=== PATIENT | male | born 1960 | race Caucasian/White ===

== ENCOUNTER 2019-02-15 09:44 | Emergency (ER) | payer BC ==
--- NOTE | 2019-02-15 09:54 | EDM.PDOC ---
ED HPI GENERAL MEDICAL PROBLEM - General Chief Complaint: Chest Pain Stated Complaint: CHEST PAINS Time Seen by Provider: 02/15/19 09:53 Source of Information: Reports: Patient, Old Records, RN, RN Notes Reviewed History Limitations: Reports: No Limitations - History of Present Illness INITIAL COMMENTS - FREE TEXT/NARRATIVE: Pt presents with c/o chest pain on and off x1 week. Pt states the pain occurs with certain movements and activities, and seems to be positional. The pain completely goes away if he lays on his back. He denies radiating pain, nausea, cough, shortness of breath, acid reflux, palpitations, or edema. Pt states he had similar pain about six months ago and underwent a chest pain rule out at another hospital, and nothing was found to be wrong with his heart. He did not f /u for a cardiac stress test. Duration: Constant, Improving Location: Reports: Chest Quality: Reports: Ache Severity: Moderate Improves with: Reports: Immobilization, Rest Worsens with: Reports: Movement (of the chest) Associated Symptoms: Reports: No Other Symptoms Left Chest Pain Score (Numeric/FACES): 1 - Related Data Allergies Allergy/AdvReac Type Severity Reaction Status Date / Time No Known Allergies Allergy Verified 02/15/19 09:54 Home Meds: Home Meds Insulin Glarg,Human.Rec.Analog [Lantus] 45 units SUBCUT DAILY 02/15/19 [History] Liraglutide [Victoza] 18 units SUBCUT DAILY 02/15/19 [History] Lisinopril 10 mg PO DAILY 02/15/19 [History] Omeprazole 20 mg PO DAILY 02/15/19 [History] metFORMIN [Glucophage XR] 500 mg PO BID 02/15/19 [History] Past Medical History Cardiovascular History: Reports: Hypertension Gastrointestinal History: Reports: Diverticulosis, GERD Endocrine/Metabolic History: Reports: Diabetes, Type II, Obesity/BMI 30+ - Past Surgical History GI Surgical History: Reports: Bariatric Procedure (gastric bypass) Social & Family History - Family History Family Medical History: Noncontributory - Tobacco Use Smoking Status *Q: Never Smoker - Caffeine Use Caffeine Use: Reports: Coffee, Soda - Recreational Drug Use Recreational Drug Use: No - Living Situation & Occupation Living situation: Reports: with Family ED ROS GENERAL - Review of Systems Review Of Systems: ROS reveals no pertinent complaints other than HPI. ED EXAM, GENERAL - Physical Exam Exam: See Below Exam Limited By: No Limitations General Appearance: Alert, WD/WN, No Apparent Distress, Obese Eye Exam: Bilateral Eye: Normal Inspection Nose: Normal Inspection Throat/Mouth: Normal Inspection, Normal Lips, Normal Voice, No Airway Compromise Head: Atraumatic, Normocephalic Neck: Normal Inspection, Supple, Non-Tender, Full Range of Motion Respiratory/Chest: No Respiratory Distress, Lungs Clear, Normal Breath Sounds, No Accessory Muscle Use, Chest Non-Tender Cardiovascular: Normal Peripheral Pulses, Regular Rate, Rhythm, No Edema, No Gallop, No JVD, No Murmur, No Rub GI/Abdominal: Normal Bowel Sounds, Soft, Non-Tender, No Organomegaly, No Distention, No Abnormal Bruit, No Mass Back Exam: Normal Inspection Extremities: Normal Inspection, Normal Range of Motion, Non-Tender, Normal Capillary Refill, No Pedal Edema Neurological: Alert, Oriented, CN II-XII Intact, Normal Cognition, Normal Gait, No Motor/Sensory Deficits Psychiatric: Normal Affect, Normal Mood Skin Exam: Warm, Dry, Intact, Normal Color, No Rash EKG INTERPRETATION EKG Date: 02/15/19 Time: 09:52 Rhythm: Other (Sinus michelle) Rate (Beats/Min): 58 [place]: Normal P-Wave: Present QRS: Normal ST-T: Normal QT: Normal Comparison: NA - No Prior EKG Course - Vital Signs Last Recorded V/S: Last Vital Signs Temp 36.7 C 02/15/19 09:47 Pulse 59 L 02/15/19 09:47 Resp 17 02/15/19 09:47 BP 143/54 H 02/15/19 09:47 Pulse Ox 97 02/15/19 09:47 - Orders/Labs/Meds Orders: Active Orders 24 hr Category Date Time Status EKG 12 Lead [EKG Documentation Completion] [RC] STAT Care 02/15/19 09:54 Active Peripheral IV Care [RC] . DIRECTED Care 02/15/19 10:03 Active Sodium Chloride 0.9% [Saline Flush] Med 02/15/19 10:02 Active 10 ml FLUSH ASDIRECTED PRN Peripheral IV Insertion Adult [OM.PC] Stat Oth 02/15/19 10:02 Ordered Medication Orders Sodium Chloride (Saline Flush) 10 ml FLUSH ASDIRECTED PRN PRN Reason: Keep Vein Open Last Admin: 02/15/19 10:09 Dose: 10 ml Labs: Laboratory Tests 02/15/19 02/15/19 Range/Units 10:06 10:06 WBC 11.2 H (5.0-10.0) 10^3/uL RBC 5.62 (4.6-6.2) 10^6/uL Hgb 16.5 (14.0-18.0) g/dL Hct 49.4 (40.0-54.0) % MCV 87.9 (80-100) fL MCH 29.4 (27.0-34.0) pg MCHC 33.4 (33.0-35.0) g/dL Plt Count 277 (150-450) 10^3/uL Neut % (Auto) 62.8 (42.2-75.2) % Lymph % (Auto) 23.7 (20.5-50.1) % Ocean % (Auto) 8.0 (2-8) % Eos % (Auto) 4.9 H (1.0-3.0) % Baso % (Auto) 0.6 (0.0-1.0) % Sodium 137 (135-145) mmol/L Potassium 4.7 (3.6-5.0) mmol/L Chloride 101 (101-111) mmol/L Carbon Dioxide 25.0 (21.0-31.0) mmol/L Anion Gap 15.7 BUN 15 (7-18) mg/dL Creatinine 0.8 (0.6-1.3) mg/dL Est Cr Clr Drug Dosing 109.81 mL/min Estimated GFR (MDRD) > 60 BUN/Creatinine Ratio 18.75 Glucose 209 H (74-105) mg/dL Calcium 9.5 (8.4-10.2) mg/dl Total Bilirubin 0.8 (0.2-1.0) mg/dL AST 19 (10-42) IU/L ALT 25 (10-60) IU/L Alkaline Phosphatase 77 (42-121) IU/L Troponin I < 0.02 (0.00-0.02) ng/ml Total Protein 7.4 (6.7-8.2) g/dl Albumin 4.2 (3.2-5.5) g/dl Globulin 3.2 Albumin/Globulin Ratio 1.31 Lipase 30 (22-51) U/L Meds: Medications Generic Name Dose Route Start Last Admin Trade Name Freq PRN Reason Stop Dose Admin Sodium Chloride 10 ml 02/15/19 10:02 02/15/19 10:09 Saline Flush FLUSH 10 ml ASDIRECTED PRN Administration Keep Vein Open - Radiology Interpretation Free Text/Narrative:: [facility] [place] [facility] Final Radiology Report Call: [phone] assistance Online chat: [email or web address] Name: RICH DALE Age: 58Years M Date: 02/15/2019 SSN: -- : [id number] Study: XR CHEST 1 VIEW FRONTAL Requesting Physician: SUSAN CURRY Images: 1 Addl Studies: Provided Clinical History: chest pain Contrast: Contrast Medium: Contrast Amount: Contrast Method: CONFIDENTIALITY STATEMENT This report is intended only for use by the referring physician, and only in accordance with law. If you received this in error, call [phone]. Page 1 of 1 EXAM: XR Chest, 1 View EXAM DATE/TIME: 02/15/2019 10:16 AM CLINICAL HISTORY: 58 years old, male; Chest pain; Type not specified TECHNIQUE: Imaging protocol: XR of the chest, 1 view. COMPARISON: No relevant prior studies available. FINDINGS: Lungs: Unremarkable. No consolidation. Pleural space: Unremarkable. No pleural effusion. No pneumothorax. Heart/Mediastinum: Unremarkable. No cardiomegaly. Bones/joints: Unremarkable. IMPRESSION: No evidence for acute pulmonary disease. Thank you for allowing us to participate in the care of your patient. Dictated and Authenticated by: Ronnie Avendaño MD 02/15/2019 10:47 AM Central Time ([place] & [place]) - Re-Assessments/Exams Free Text/Narrative Re-Assessment/Exam: 02/15/19 10:56 I explained the exam findings, results of all diagnostic tests, working diagnosis, and any potential or additionally considered diagnoses, treatment/ disposition plan, self/home care instructions, rational for the diagnosis/ treatment plan/disposition plan, anticipated course of illness, and follow up instructions to the pt and/or pts family or guardian. I explained to the pt that I think he is at low risk for ACS/AMI or any life threatening problem at this time. Given the Hx, exam and diagnostic findings, I think the pt's pain is most likely mechanical/musk-skel. in nature. The pt and/or pts family or guardian acknowledges understanding of the above explanation(s), and of the signs and symptoms which should prompt the return of the pt to the ER should those or any other concerning symptoms develop. Departure - Departure Time of Disposition: 10:59 Disposition: Home, Self-Care 01 Condition: Good Clinical Impression: Chest pain, non-cardiac Instructions: Nonspecific Chest Pain, [id number], Chest Wall Pain, Easy-to- Read Forms: ED Department Discharge Additional Instructions: Rx: Tramadol 50mg *Do not drive or consume alcohol while under the influence of this medication. Follow up in clinic this week for recheck and ask your doctor for a referral for a cardiac stress test. - My Orders Last 24 Hours: My Active Orders 02/15/19 09:54 EKG 12 Lead [EKG Documentation Completion] [RC] STAT 02/15/19 10:02 Sodium Chloride 0.9% [Saline Flush] 10 ml FLUSH ASDIRECTED PRN Peripheral IV Insertion Adult [OM.PC] Stat 02/15/19 10:03 Peripheral IV Care [RC] . DIRECTED - Assessment/Plan Last 24 Hours: My Active Orders 02/15/19 09:54 EKG 12 Lead [EKG Documentation Completion] [RC] STAT 02/15/19 10:02 Sodium Chloride 0.9% [Saline Flush] 10 ml FLUSH ASDIRECTED PRN Peripheral IV Insertion Adult [OM.PC] Stat 02/15/19 10:03 Peripheral IV Care [RC] . DIRECTED
[2019-02-15] MEDS ORDERED: Sodium Chloride 0.9% 10 ML Syringe FLUSH PRN (10:02)
[2019-02-15 10:33] LABS: ANION GAP 15.7; CHLORIDE,CL 101 mmol/L (101-111); SODIUM,NA 137 mmol/L (135-145)
== END 2019-02-15 11:08 | disposition home or self-care (01) ==
LOC: DL.ED 09:44
DX: R07.89 Other chest pain (principal); I10 Essential (primary) hypertension; K21.9 Gastro-esophageal reflux disease without esophagitis; E11.9 Type 2 diabetes mellitus without complications; Z79.4 Long term (current) use of insulin; Z79.899 Other long term (current) drug therapy
CPT/HCPCS: 36415; 71045; 80053; 83690; 84484; 85025; 93005; 99285-25